=== PATIENT | female | born 1975 | race Caucasian/White ===

== ENCOUNTER 2016-06-23 18:33 | Inpatient (IN) ==
--- NOTE | 2016-06-23 18:48 | EKG Report ---
Test Performed on : 06/23/2016 6:39:42 PM Test Reason : CP Blood Pressure : / mmHG Vent. Rate : 069 BPM Atrial Rate : 069 BPM P-R Int : 140 ms QRS Dur : 108 ms QT Int : 408 ms P-R-T Axes : 017 062 044 degrees QTc Int : 437 ms Normal sinus rhythm. Normal ECG When compared with ECG of 02-JUN-2016 18:50, No significant change was found Unconfirmed Result
[2016-06-23 19:24] LABS: MANUAL DIFF NEEDED? NO
[2016-06-23 19:25] LABS: BASO% 0.1 % (0.0-0.8); EOS% 0.7 % (0.0-10.0); HEMOGLOBIN 12.3 g/dL (12.0-16.0); IMM GRAN# 0.06 X1000 (0.0-0.04); IMM GRAN% 0.4 % (0.0-0.5); LYMPH# 2.98 X1000 (1.2-3.4); LYMPH% 21.2 % (20.5-51.1); MCH 27.7 PG (27-31); MCHC 33.2 g/dL (33-37); MCV 83.3 FL (81-99); MONO# 0.78 X1000 (0.11-0.59); MONO% 5.6 % (1.7-9.3); MPV 9.7 FL (7.4-10.4); PLT 426 X1000 (130-400); RBC 4.44 XMIL (4.2-5.4)
[2016-06-23 19:46] LABS: INR 0.96 (0.86-1.15); PROTIME 13.1 Seconds (12.1-15.5)
[2016-06-23 19:47] LABS: PTT PL 36.5 Seconds (22.6-43.9)
--- NOTE | 2016-06-23 19:54 | ED EKG INTERP ---
EKG Interpretation - EKG Time of EKG reading by physician:: 18:39 EKG Read and Signed by:: Yassine Thapa EKG Interpretation (*Must complete 3 of following elements*): Normal Rate: 69 Rhythm: nsr [place]: normal QRS: normal Attestation - Scribe Verification/Attestation Scribe:: Alley Little Acting as Scribe for:: Yassine Thapa Scribe documention review:: This chart was documented by a scribe and accurately reflects the service the provider performed and the decisions made by the provider. Physician Attestation - Physician Attestation I, the provider, attest to the following statement:: Yassine Thapa Physician documentation Attestation:: This documentation recorded by the scribe accurately reflects the service I personally performed and the decisions made by me.
[2016-06-23 19:55] LABS: AGAP 12; ALBUMIN 4.5 g/dL (3.5-5.0); ALKALINE PHOSPHATASE 108 U/L (32-104); BUN 12 mg/dL (8-22); CALCIUM 9.2 mg/dL (8.8-10.2); CHLORIDE 100 mmol/L (98-107); CK PROFILE 129 U/L (24-173); COSMO 271; GOT 15 U/L (10-30); GPT 19 U/L (10-36); MAGNESIUM 2.5 mg/dL (1.5-2.7); POTASSIUM 3.5 mmol/L (3.5-5.1); SODIUM 136 mmol/L (136-145); TCO2 25 mmol/L (25-35); TOTAL PROTEIN 8.2 g/dL (6.3-8.3)
--- NOTE | 2016-06-23 20:11 | PROVIDER DOCUMENTATION ---
HPI-Chest Pain - General Chief Complaint: Chest Pain Stated Complaint: CHEST PAIN Time Seen by Provider: 06/23/16 18:51 Source: patient Allergies/Adverse Reactions: Patient Allergies Allergy/AdvReac Type Severity Reaction Status Date / Time No Known Allergies Allergy Verified 06/23/16 18:43 Home Medications: Home Medication List Medication Instructions Recorded Confirmed Last Taken Type Famotidine [Pepcid] 20 mg PO DAILY #20 tablet 05/28/16 06/23/16 06/23/16 Rx Lisinopril/Hydrochlorothiazide 1 each PO DAILY #30 tablet 05/28/16 06/23/16 Rx [Lisinopril-Hctz 10-12.5 mg Tab] - History of Present Illness-CP Nature of Presenting Problem: pt is a 40yof presenting to the ed c/o cp/sob. pt has no history of cardiac dz. pt denies any n/v/d or fever. she denies any other complaints at this time Location: reports: central Chest Pain Radiation: reports: no radiation Quality of Pain: reports: aching Severity in ED: mild Onset/Duration: 24 hours ago Timing: still present Context/Activities at Onset: reports: light activity Modifying Factors: improves with: nothing Associated Symptoms: reports: fatigue, shortness of breath. denies: back pain, diaphoresis, nausea, syncope, vomiting Nitro Today/Relief: no nitro taken today Aspirin Treatment Today: no aspirin today Prior Chest Pain/Cardiac Workup: reports: no prior chest pain, no prior cardiac workup Similar Symptoms Previously?: No Recently Seen Here or By Another Healthcare Provider: No Review of Systems - Adult - REVIEW OF SYSTEMS - ADULT Constitutional: reports: no symptoms reported Eyes: reports: no symptoms reported Ears, Nose, Mouth & Throat: reports: no symptoms reported Cardiovascular: reports: see HPI, chest pain. denies: irregular heart rate, poor circulation, syncope Respiratory: reports: see HPI, shortness of breath. denies: cough, dyspnea on exertion Gastrointestinal: reports: no symptoms reported Genitourinary: reports: no symptoms reported Musculoskeletal: reports: no symptoms reported Integumentary: reports: no symptoms reported Neurological: reports: no symptoms reported Psychiatric: reports: no symptoms reported Endocrine: reports: no symptoms reported Hematologic/Lymphatic: reports: no symptoms reported Allergic/Immunologic: reports: no symptoms reported All Other Systems: Reviewed and Negative Past History - Adult - PAST MEDICAL HISTORY-ADULT Review of Records: reports: Old Records Reviewed, Nursing Assessment Review, Medications Reviewed, Social history reviewed & non-contributory. Major Childhood Illnesses: reports: denies history Cardiovascular: reports: HTN Respiratory: reports: denies history Gastrointestinal: reports: GERD Obstetrical/Gynecological: reports: denies history Genitourinary: reports: denies history Musculoskeletal: reports: denies history Neurological: reports: denies history Psychiatric: reports: denies history Endocrine/Immune: reports: denies history Other Conditions: reports: denies history - IMMUNIZATION STATUS Childhood Immunizations: See Nurse Assessment Flu Vaccine: See Nurse Assessment - FAMILY HISTORY Family History: reviewed, not pertinent - SOCIAL HISTORY Smoking: denies, non-smoker Substance Use: none/never, denies Alcohol Use Frequency: never Living Situation: family Physical Exam-General - PHYSICAL EXAM-ADULT Initial Vital Signs Reviewed: Yes - CONSTITUTIONAL General Appearance: alert, moderate distress. negative: appears well, no apparent distress - EYES Eyes: PERRL/EOMI, pink conjunctivae, fundi clear, no AV nicking - HEAD, EARS, NOSE, MOUTH & THROAT HENMT: normocephalic/atraumatic, moist mucous membranes, TMs normal, pharynx normal, dental decay. negative: normal ENT inspection - NECK Neck: non-tender, full range of motion, supple, normal inspection - RESPIRATORY Respiratory: chest non-tender, lungs clear, normal breath sounds, no pleuratic chest pain, no respiratory distress, no accessory muscle use - CARDIOVASCULAR Cardiovascular: normal peripheral pulses, regular rate, rhythm, no edema, no gallop, no JVD, no murmur - GASTROINTESTINAL (ABDOMEN) Abdominal Exam: normal bowel sounds, non tender, soft, no organomegaly, no pulsatile mass - LYMPHATIC Lymphatic: no adenopathy - MUSCULOSKELETAL Back Exam: normal inspection, no CVA tenderness, no vertebral tenderness Extremity: normal range of motion, non-tender, normal gait, normal inspection, no pedal edema, no calf tenderness, normal capillary refill, pelvis stable - SKIN Integumentary: normal color, normal turgor, warm/dry - NEUROLOGIC Neurologic: certified medical coder II-XII nml as tested, grossly normal, no motor/sensory deficits - PSYCHIATRIC Psych/Mental Status: normal mood/affect, normal thought content, normal thought process, oriented x 3 Departure - Departure Time of Disposition Order: 18:23 DIAGNOSIS: Intrauterine Disposition: ADMITTED INPATIENT 09 Certified Medical Emergency: Emergent Condition: Stable Attestation - Scribe Verification/Attestation Scribe:: Alley Little Acting as Scribe for:: Yassine Thapa Scribe documention review:: This chart was documented by a scribe and accurately reflects the service the provider performed and the decisions made by the provider. Physician Attestation - Physician Attestation I, the provider, attest to the following statement:: Yassine Thapa Physician documentation Attestation:: This documentation recorded by the scribe accurately reflects the service I personally performed and the decisions made by me.
[2016-06-23] MEDS ORDERED: G.I. COCKTAIL PO ONE (20:27)
[2016-06-23] MEDS ORDERED: TORADOL IV ONE (20:27)
--- NOTE | 2016-06-23 20:31 | EKG Report ---
Test Performed on : 06/23/2016 8:17:10 PM Test Reason : CHEST PAIN Blood Pressure : / mmHG Vent. Rate : 068 BPM Atrial Rate : 068 BPM P-R Int : 152 ms QRS Dur : 102 ms QT Int : 408 ms P-R-T Axes : 036 076 052 degrees QTc Int : 433 ms Normal sinus rhythm. Normal ECG When compared with ECG of 23-JUN-2016 18:39, (Unconfirmed) No significant change was found Unconfirmed Result
--- NOTE | 2016-06-23 20:31 | ED EKG INTERP ---
EKG Interpretation - EKG Time of EKG reading by physician:: 20:18 EKG Read and Signed by:: Yassine Thapa EKG Interpretation (*Must complete 3 of following elements*): Normal Rate: 68 Rhythm: NSR [place]: normal QRS: normal Attestation - Scribe Verification/Attestation Scribe:: Alley Little Acting as Scribe for:: Yassine Thapa Scribe documention review:: This chart was documented by a scribe and accurately reflects the service the provider performed and the decisions made by the provider. Physician Attestation - Physician Attestation I, the provider, attest to the following statement:: Yassine Thapa Physician documentation Attestation:: This documentation recorded by the scribe accurately reflects the service I personally performed and the decisions made by me.
[2016-06-23] MEDS ORDERED: MORPHINE IV PRN (21:28)
[2016-06-23] MEDS ORDERED: ZOFRAN IV PRN (21:28)
[2016-06-24] MEDS ORDERED: MORPHINE IV PRN (07:41)
--- NOTE | 2016-06-24 08:57 | Diag Imaging Result Document ---
PROCEDURE NAME: CHEST-2 VIEWS - 06/23/2016 CHEST X-RAY, 2 VIEWS: COMPARISON: 06/02/2016. FINDINGS: Stable small pulmonary nodule in the left lung base. No focal infiltrates, pneumothorax, or pleural effusion. Heart size remains normal. IMPRESSION: Stable small left basilar pulmonary nodule. No change from prior.
[2016-06-24] MEDS ORDERED: FLUZONE QUAD 2016-2017 SYRINGE IM ONE (09:00)
[2016-06-24] MEDS ORDERED: NON-FORMULARY MED (Lisinopril/Hydrochlorothiazide [Lisinopril-Hctz 10-12.5 Mg Tab] 1 EACH) PO SCH (09:00)
[2016-06-24 09:01] LABS: HEMATOCRIT 34.4 % (37.0-47.0); HEMOGLOBIN 11.5 g/dL (12.0-16.0); MCH 28.2 PG (27-31); MCHC 33.4 g/dL (33-37); MCV 84.3 FL (81-99); MPV 9.2 FL (7.4-10.4); RBC 4.08 XMIL (4.2-5.4)
[2016-06-24] MEDS: PRINIVIL PO SCH (09:27)
[2016-06-24] MEDS: PROTONIX IV SCH ×2 (09:27→20:08)
[2016-06-24] MEDS: HYDROCHLOROTHIAZIDE PO SCH (09:27)
[2016-06-24] MEDS: SODIUM CHLORIDE 0.9% INJ SCH ×2 (09:27→20:08)
[2016-06-24 09:35] LABS: AGAP 12; ALBUMIN 3.8 g/dL (3.5-5.0); ALKALINE PHOSPHATASE 98 U/L (32-104); BUN 15 mg/dL (8-22); CALCIUM 8.9 mg/dL (8.8-10.2); CHLORIDE 102 mmol/L (98-107); COSMO 273; GOT 16 U/L (10-30); GPT 19 U/L (10-36); MAGNESIUM 2.5 mg/dL (1.5-2.7); POTASSIUM 3.7 mmol/L (3.5-5.1); SODIUM 136 mmol/L (136-145); TCO2 22 mmol/L (25-35); TOTAL PROTEIN 7.1 g/dL (6.3-8.3)
--- NOTE | 2016-06-24 10:01 | EKG Report ---
Test Performed on : 06/24/2016 09:25:02 AM Test Reason : cp Blood Pressure : / mmHG Vent. Rate : 061 BPM Atrial Rate : 061 BPM P-R Int : 124 ms QRS Dur : 108 ms QT Int : 440 ms P-R-T Axes : 042 032 023 degrees QTc Int : 442 ms Normal sinus rhythm. with sinus arrhythmia. Junctional ST depression, probably normal Borderline ECG When compared with ECG of 23-JUN-2016 20:17, ST now depressed in Anterior leads Unconfirmed Result
[2016-06-24] MEDS: TORADOL IV PRN (13:05)
--- NOTE | 2016-06-24 17:29 | HISTORY AND PHYSICAL ---
PRIMARY CARE PHYSICIAN: None. CHIEF COMPLAINT: "I have a crushing pain in my chest since 3 o'clock yesterday afternoon, and it has been constant." HISTORY OF PRESENTING ILLNESS: This is a 40-year-old female who presented to [facility] with complaints of a crushing pain in her chest that began around 3 o'clock yesterday afternoon. She stated that it stayed constant. It did not improve with anything. Workup in the ER showed cardiac enzymes x2 sets were negative. EKG on arrival showed normal sinus rhythm at 69, so she was admitted for further evaluation and treatment. PAST MEDICAL HISTORY: Hypertension and acid reflux PAST SURGICAL HISTORY: section x3. FAMILY HISTORY: Maternal grandfather with diabetes. SOCIAL HISTORY: She currently lives with her mother. She denies any tobacco, alcohol, or illicit drug use. ALLERGIES: She has no known drug allergies. HOME MEDICATIONS: She takes lisinopril/hydrochlorothiazide 10/12.5 one p.o. daily and Pepcid 20 mg p.o. daily. DIAGNOSTIC DATA: Laboratory data showed a white blood cell count of 14.05, hemoglobin of 12.3, hematocrit 37, platelets 426,000. PT and INR of 13.1 and 0.96. Sodium of 136, potassium 3.5, chloride 100, CO2 of 25, BUN of 12, creatinine 0.7, glucose of 90, magnesium 2.5. Her cardiac enzymes x2 sets have been negative. Her proBNP was 179. EKG on arrival showed normal sinus rhythm at 69. Chest x-ray showed a stable small left basilar pulmonary nodule with no change from prior. REVIEW OF SYSTEMS: She denied any fever, chills, blurred vision, dizziness. She was positive for chest pain. Denied any palpitations, shortness of breath, cough, abdominal pain, nausea, vomiting, diarrhea, or burning or hurting with urination. PHYSICAL EXAMINATION: VITAL SIGNS: On arrival, she had a temperature of 97.1 degrees, a pulse of 67, respirations 18, blood pressure 147/93, saturating 100% on room air. GENERAL: This is a 40-year-old female who is lying in the bed and answers questions appropriately. HEENT: Normocephalic and atraumatic. Pupils are equal, round, and reactive to light. Extraocular movements are intact. Oropharynx and nares are clear. NECK: Supple. LUNGS: Clear to auscultation bilaterally with equal lung expansion and chest wall movement. HEART: With regular rate and rhythm. No murmurs, rubs, or gallops. ABDOMEN: Soft, nontender, nondistended. Bowel sounds are present x4 quadrants. EXTREMITIES: No clubbing, cyanosis, or edema. NEUROLOGICAL: The cranial nerves 2 through 12 are grossly intact. ASSESSMENT: 1. Chest pain. 2. Hypertension. 3. Acid reflux. PLAN: She was admitted to the Medical Unit at [facility], placed on telemetry, healthy heart diet. We will obtain an echocardiogram. Continue her home medications as previously identified. Morphine 2 mg IV every 2 hours p.r.n. and Zofran 4 mg IV every 4 hours p.r.n. We will recheck a CBC and BMP in the a.m. Dictated by BROWN Hopkins for Yovany Rojas MD
[2016-06-25] MEDS: HYDROCHLOROTHIAZIDE PO SCH (08:18)
[2016-06-25] MEDS: SODIUM CHLORIDE 0.9% INJ SCH (08:18)
[2016-06-25] MEDS: PRINIVIL PO SCH (08:18)
[2016-06-25] MEDS: PROTONIX IV SCH (08:18)
[2016-06-25] MEDS: TORADOL IV PRN (10:51)
--- NOTE | 2016-06-25 14:26 | PROGRESS NOTE ---
DATE: 06/25/2016 SUBJECTIVE: Patient still complains of chest pain although it is not the same chest pain she had yesterday. Currently the chest pain is on the right side of her chest, tender to the touch and hurts when she moves her right arm. She states that she gets dizzy, lightheaded and nauseated when the chest pain increases. PHYSICAL: Temp 98 degrees, pulse 76, respiratory 20, BP 126/70 to 142/77. Saturation 98-100% on room air.General: Patient is awake, alert. She is in no distress. She is watching television. She does not appear to be hurting anywhere. HEENT: Normocephalic, atraumatic, GABE. Neck: Supple. CV: Regular rate. Chest: Relatively clear. Abdomen: Soft, nondistended. Extremities: Moves all extremities. Neurologic: No changes. LABORATORIES: CBC and CMP essentially normal. First 2 sets cardiac enzymes are completely normal. ASSESSMENT: 1. Chest pain. Certainly does not appear cardiac. It appears much more costochondral in nature. 2. Dizziness. Uncertain cause of this. 3. Hypertension stable. 4. Chronic reflux. PLAN: Will stop morphine which she has not actually asked for. Will change to p.o. Prilosec. Continue Toradol. Certainly unusual cause of her pain that would be causing her to be lightheaded. She is a very difficult historian. We will continue to follow. Further orders as needed.
[2016-06-26] MEDS ORDERED: PRILOSEC PO SCH (07:00)
[2016-06-26] MEDS: HYDROCHLOROTHIAZIDE PO SCH (08:39)
[2016-06-26] MEDS: PRINIVIL PO SCH (08:39)
[2016-06-26 11:23] VITALS: BP 125/62
--- NOTE | 2016-06-26 16:30 | ECHO REPORT ---
ORDER DATE: 06/24/2016 ECHOCARDIOGRAPHIC MEASUREMENTS: 1. Interventricular septum 1.2, left ventricular posterior wall 1.0, diastolic diameter 4.6, left atrium 4, aorta 3.1, aortic valve leaflets were trileaflet. 2. Pulmonic valve was normal. 3. Normal left ventricular cavity size. Estimated ejection fraction of 60%. Mitral valve was normal. Tricuspid valve was normal. 4. Doppler studies revealed peak velocity across the aortic valve less than 2 m/sec. There is no aortic stenosis or regurgitation. There is trace to mild tricuspid regurgitation. Peak velocity across the tricuspid valve was 2.6 m/sec. Pulmonary artery systolic pressure of 35- 38 mmHg. 5. There was trace mitral regurgitation. 6. There is no pericardial effusion or obvious intracardiac mass or thrombus seen.
--- NOTE | 2016-06-27 06:32 | DISCHARGE SUMMARY ---
ADMISSION DATE: 06/23/2016 DISCHARGE DATE: 06/26/2016 DISCHARGE DIAGNOSES: 1. Chest pain. Clearly this is noncardiac and is pleuritic in nature, and she is tender at the head of the 3rd and 4th rib. Hurts to move her right arm. 2. Dizziness, likely vertigo-related. While she is laying in bed her dizziness is still present. 3. New onset right knee pain. Stable. 4. Hypertension. 5. Reflux. CONSULTATIONS: None. PROCEDURES: None. BRIEF HOSPITAL COURSE: Patient is a 40-year-old female who presented to the emergency department with crushing chest pain that awakened her around 3 o'clock in the afternoon and had been constant and persistent in nature. She was admitted to the hospital. Ruled out for an MO. She would have been discharged home 1 day earlier but she noted that each time she got up she was too dizzy to stand. Thankfully this continued to improve. On discharge, she was having dizziness but it was much improved. Unfortunately each day she was in the hospital, Ms. Gill noted different symptoms and worsening symptoms. After a day or she became nauseated and then notes that this has been going on for several months. She also started having headaches, but notes she has had headaches off and on forever. She has been complaining of her right knee hurting, but after further questioning this has been present for 2-3 weeks and unchanged. Patient thankfully otherwise had an uneventful hospital course. DISPOSITION: 35 minutes was spent in discharge planning and instructions. Discussed with her that she needs to follow up with her primary care physician regarding her right knee as this would be an outpatient workup and she may need x-rays, MRIs etc. Currently it is stable and she is able to ambulate with minimal difficulty. She will be continued on her home medications of Pepcid and lisinopril hydrochlorothiazide. No other changes were made. She can take Aleve if she needs to. DISCHARGE TIME: 35 minutes was spent in discharge planning and instructions.
== END 2016-06-26 13:13 | disposition home or self-care (01) | DRG 313 ==
LOC: P.ED 18:33 → OBSVTOIN 21:43 → P.MEDSURG 21:43
PROVIDERS: ATTEND Family Medicine
DX: R07.89 Other chest pain (principal); I10 Essential (primary) hypertension; K21.9 Gastro-esophageal reflux disease without esophagitis; R42 Dizziness and giddiness; M25.561 Pain in right knee; Z79.899 Other long term (current) drug therapy; Z83.3 Family history of diabetes mellitus; Z23 Encounter for immunization
CPT/HCPCS: 71020; 80053; 82550; 83735; 83880; 84443; 84484; 85025; 85027; 85610; 85730; 93005; 93306; 94760; 94761; 96374; C9113; J1885; J2270; Q2038; S0164

== ENCOUNTER 2019-03-13 18:21 | Observation (INO) ==
[2019-03-13] MEDS ORDERED: ASPIRIN PO ONE (18:58)
[2019-03-13] MEDS ORDERED: ASPIRIN PR ONE (18:58)
--- NOTE | 2019-03-13 19:58 | Diag Imaging Result Doc PS360 ---
EXAM: CHEST-2 VIEWS INDICATION: CP TECHNIQUE: 2 views COMPARISON: 11/27/2017 FINDINGS: There is a stable calcified granuloma at the lateral left lung base. The lungs are grossly clear. There is no discrete pleural fluid collection or pneumothorax. The cardiomediastinal silhouette and central vasculature are grossly unremarkable. IMPRESSION: No evidence of acute pathology by plain radiograph. Electronically signed by Demian Sheikh 03/13/2019 7:56 PM
[2019-03-13 20:01] LABS: INR 0.94; PROTIME 12.6 Seconds (11.0-16.0)
[2019-03-13 20:02] LABS: PTT 30.5 Seconds (22.3-41.8)
[2019-03-13 20:07] LABS: BASO# 0.02 X1000 (0.0-0.2); BASO% 0.2 % (0.0-0.8); EOS# 0.19 X1000 (0.0-0.7); EOS% 1.7 % (0.0-10.0); HEMOGLOBIN 11.4 g/dL (12.0-16.0); IMM GRAN# 0.11 X1000 (0.0-0.04); LYMPH% 27.1 % (20.5-51.1); MCH 29.6 PG (27-31); MCHC 32.6 g/dL (33-37); MCV 90.9 FL (81-99); MONO# 0.68 X1000 (0.11-0.59); MONO% 6.1 % (1.7-9.3); MPV 10.7 FL (7.4-10.4); NEUT# 7.08 X1000 (1.4-6.5); NEUT% 63.9 % (42.2-75.2); PLT 329 X1000 (130-400); RBC 3.85 XMIL (4.2-5.4); RDW 13.3 % (11.5-14.5); WBC 11.08 X1000 (4.8-10.8)
[2019-03-13 20:14] LABS: AGAP 14; ALB/GLOB RATIO 1.6; ALBUMIN 4.3 g/dL (3.5-5.0); ALKALINE PHOSPHATASE 114 U/L (32-104); BUN 16 mg/dL (8-22); CALCIUM 9.4 mg/dL (8.8-10.2); CHLORIDE 101 mmol/L (98-107); CK PROFILE 1043 U/L (24-173); COSMO 283; CREATININE 0.9 mg/dL (0.5-0.9); ESTIMATED GFR > 60; GLUCOSE 109 mg/dL (70-104); GOT 39 U/L (10-30); GPT 42 U/L (10-36); POTASSIUM 3.7 mmol/L (3.5-5.1); SODIUM 141 mmol/L (136-145); TCO2 26 mmol/L (25-35); TOTAL BILIRUBIN < 0.15 mg/dL (0.20-1.00)
--- NOTE | 2019-03-13 20:23 | PROVIDER DOCUMENTATION ---
HPI-Chest Pain - General Chief Complaint: Chest Pain Stated Complaint: CHEST PAIN Time Seen by Provider: 03/13/19 20:16 Source: patient Allergies/Adverse Reactions: Patient Allergies Allergy/AdvReac Type Severity Reaction Status Date / Time No Known Allergies Allergy Verified 03/13/19 20:21 Home Medications: Home Medication List Medication Instructions Recorded Confirmed Last Taken Type Clindamycin [Cleocin] 300 mg PO Q6HR 09/04/18 09/10/18 09/01/18 History Furosemide [Lasix] 20 mg PO PRN PRN 09/04/18 09/04/18 09/01/18 History Ibuprofen 800 mg PO TID 09/04/18 09/04/18 09/01/18 History Lisinopril/Hydrochlorothiazide 1 ea PO DAILY 09/04/18 09/04/18 09/01/18 History [Lisinopril-Hctz 20-12.5 mg Tab] Naproxen 500 mg PO BID 09/04/18 09/04/18 09/01/18 History Propranolol HCl 60 mg PO HS 09/04/18 09/04/18 09/01/18 History Hydrocodone/APAP 10 mg/325 mg 1 ea PO Q6H PRN PRN #12 tab 09/10/18 Unknown Rx [Irving-10] Promethazine [Phenergan] 25 mg PO Q6H PRN PRN #5 tab 09/10/18 Unknown Rx Cyclobenzaprine [Flexeril] 10 mg PO TID #20 tab 11/26/18 Unknown Rx - History of Present Illness-CP Nature of Presenting Problem: 43yof present to ER with c/o chest pain intermittent x 1 month. States the pain got much worse at 1500 today. Reports some SOB. States pain is worse with inspiration and movement. Denies fever. Location: reports: central Chest Pain Radiation: reports: no radiation Onset/Duration: this afternoon, other (1 month) Timing: still present, intermittent, getting worse Associated Symptoms: reports: shortness of breath. denies: diaphoresis, fever/chills, vomiting Review of Systems - Adult - REVIEW OF SYSTEMS - ADULT Constitutional: reports: no symptoms reported. denies: chills, fever Eyes: reports: no symptoms reported Ears, Nose, Mouth & Throat: reports: no symptoms reported Cardiovascular: reports: see HPI, chest pain Respiratory: reports: see HPI, shortness of breath Gastrointestinal: reports: no symptoms reported. denies: abdominal pain, nausea, vomiting Genitourinary: reports: no symptoms reported Musculoskeletal: reports: no symptoms reported Integumentary: reports: no symptoms reported Neurological: reports: no symptoms reported Psychiatric: reports: no symptoms reported Endocrine: reports: no symptoms reported Hematologic/Lymphatic: reports: no symptoms reported Allergic/Immunologic: reports: no symptoms reported All Other Systems: Reviewed and Negative Past History - Adult - PAST MEDICAL HISTORY-ADULT Review of Records: reports: Old Records Reviewed, Nursing Assessment Review, Medications Reviewed, Social history reviewed & non-contributory. Major Childhood Illnesses: reports: denies history Cardiovascular: reports: HTN Respiratory: reports: denies history Gastrointestinal: reports: GERD Obstetrical/Gynecological: reports: denies history Genitourinary: reports: denies history Musculoskeletal: reports: denies history Neurological: reports: denies history Psychiatric: reports: denies history, depression Endocrine/Immune: reports: denies history Other Conditions: reports: denies history - PRIOR SURGERIES/PROCEDURES Surgical/Procedure History: reports: hysterectomy, BTL, (x3) - IMMUNIZATION STATUS Childhood Immunizations: See Nurse Assessment Flu Vaccine: See Nurse Assessment - FAMILY HISTORY Family History: reviewed, not pertinent Physical Exam-General - PHYSICAL EXAM-ADULT Initial Vital Signs Reviewed: Yes - CONSTITUTIONAL General Appearance: alert, mild distress - HEAD, EARS, NOSE, MOUTH & THROAT HENMT: moist mucous membranes, normal ENT inspection. negative: angioedema - NECK Neck: full range of motion, supple, normal inspection - RESPIRATORY Respiratory: lungs clear, normal breath sounds, no respiratory distress, no acc essory muscle use, pain on inspiration, other (tenderness to palpation to chest) - CARDIOVASCULAR Cardiovascular: regular rate, rhythm - LYMPHATIC Lymphatic: no adenopathy - MUSCULOSKELETAL Back Exam: normal inspection Extremity: normal range of motion, normal inspection - SKIN Integumentary: normal color, warm/dry. negative: diaphoresis - NEUROLOGIC Neurologic: grossly normal, no motor/sensory deficits - PSYCHIATRIC Psych/Mental Status: normal mood/affect, oriented x 3 - HEART Score HEART Score: History: Slightly Suspicious HEART Score: ECG: Normal HEART Score: Age: < or = 45 Years HEART Score: Risk Factors for Atherosclerotic Disease: 1 or 2 Risk Factors HEART Score: Troponin: < or = Normal Limit Total HEART Score:: 1 Progress - PLAN OF CARE/RESULTS Progress/Plan/Lab Results: Vital Signs - 8 hr 03/13/19 18:55 Temperature 98.2 F Pulse Rate 71 Respiratory Rate 18 Blood Pressure 138/85 O2 Sat by Pulse Oximetry 99 Laboratory Results - last 24 hr 03/13/19 03/13/19 03/13/19 19:03 19:03 19:03 WBC 11.08 H RBC 3.85 L Hgb 11.4 L Hct 35.0 L MCV 90.9 MCH 29.6 MCHC 32.6 L RDW Std Deviation 13.3 Plt Count 329 MPV 10.7 H Immature Gran % (Auto) 1.0 H Neut % (Auto) 63.9 Lymph % (Auto) 27.1 [place] % (Auto) 6.1 Eos % (Auto) 1.7 Baso % (Auto) 0.2 Immature Gran # (Auto) 0.11 H Neut # (Auto) 7.08 H Lymph # (Auto) 3.00 [place] # (Auto) 0.68 H Eos # (Auto) 0.19 Baso # (Auto) 0.02 PT INR PTT (Actin FS) D-Dimer, Quantitative Sodium 141 Potassium 3.7 Chloride 101 Carbon Dioxide 26 Anion Gap 14 BUN 16 Creatinine 0.9 Estimated GFR/1.73 m2 > 60 BUN/Creatinine Ratio 18 Glucose 109 H Calculated Osmolality 283 Calcium 9.4 Total Bilirubin < 0.15 L AST 39 H ALT 42 H Alkaline Phosphatase 114 H Creatine Kinase 1043 H Creatine Kinase Index 0.2 CK-MB (CK-2) 2.08 Troponin T Poa-N-Tyztignbkwg Pept 185 H Total Protein 7.0 Albumin 4.3 Globulin 2.7 Albumin/Globulin Ratio 1.6 03/13/19 03/13/19 03/13/19 19:03 19:03 19:03 WBC RBC Hgb Hct MCV MCH MCHC RDW Std Deviation Plt Count MPV Immature Gran % (Auto) Neut % (Auto) Lymph % (Auto) [place] % (Auto) Eos % (Auto) Baso % (Auto) Immature Gran # (Auto) Neut # (Auto) Lymph # (Auto) [place] # (Auto) Eos # (Auto) Baso # (Auto) PT 12.6 INR 0.94 PTT (Actin FS) 30.5 D-Dimer, Quantitative 0.61 H Sodium Potassium Chloride Carbon Dioxide Anion Gap BUN Creatinine Estimated GFR/1.73 m2 BUN/Creatinine Ratio Glucose Calculated Osmolality Calcium Total Bilirubin AST ALT Alkaline Phosphatase Creatine Kinase Creatine Kinase Index CK-MB (CK-2) Troponin T < 0.010 Qze-K-Ylmzcnpvtpc Pept Total Protein Albumin Globulin Albumin/Globulin Ratio Orders Category Date Time Status Cardiac Monitoring DIRECTED Care 03/13/19 18:59 Active Oxygen Therapy- ED Nursing DIRECTED Care 03/13/19 18:59 Active Saline Loc NOW Care 03/13/19 18:59 Active CHEST-2 VIEWS [RAD] Stat Exams 03/13/19 18:59 Completed CBC WITH ELECTRONIC DIFF [HEME] Stat Lab 03/13/19 19:03 Completed CK PROFILE [SP CHEM] Stat Lab 03/13/19 19:03 Completed COMPREHENSIVE METABOLIC PANEL [CHEM] Stat Lab 03/13/19 19:03 Completed D-DIMER [COAG] Stat Lab 03/13/19 19:03 Completed PRO B-NATRIURETIC PEPTIDE Stat Lab 03/13/19 19:03 Completed PROTIME WITH INR [COAG] Stat Lab 03/13/19 19:03 Completed PTT [COAG] Stat Lab 03/13/19 19:03 Completed TROPONIN T Stat Lab 03/13/19 19:03 Completed Aspirin Med 03/13/19 18:58 Discontinued 300 mg SD NOW ONE Aspirin Med 03/13/19 18:58 Discontinued 325 mg PO NOW ONE CP/SOB/Palp >45 yrs of Age Stat Oth 03/13/19 18:58 Ordered EKG [EKG] Stat Ther 03/13/19 18:59 Ordered Pt had stress last week, schedule to have cath in the am, now with worsening cp, will admit and pt to have cath in the am Result Diagrams: 03/13/19 19:03 03/13/19 19:03 - XRAY 1 XRAY Study: Chest Impression: See EMR Report (EXAM: CHEST-2 VIEWS INDICATION: CP TECHNIQUE: 2 views COMPARISON: 11/27/2017 FINDINGS: There is a stable calcified granuloma at the lateral left lung base. The lungs are grossly clear. There is no discrete pleural fluid collection or pneumothorax. The cardiomediastinal paco [place]ou[place] and central vasculature are grossly unremarkable. IMPRESSION: No evidence of acute pathology by plain radiograph. Electronically signed by Demian Sheikh 03/13/2019 7:56 PM) - CHANGE OF SHIFT REPORT (ED Provider) 1 Report Given and Care Transferred to:: Dr King Time of Transfer: 20:42 Items Pending: Labs Departure - Departure Date of Disposition Decision: 03/13/19 Time of Disposition Decision: 23:22 DIAGNOSIS: Chest pain Qualifiers: Chest pain type: other chest pain Qualified Code(s): R07.89 - Other chest pain; R07.8 - Other chest pain Disposition: ADMITTED INPATIENT 09 Certified Medical Emergency: Emergent Condition: Stable Referrals and Follow-Ups: Sharad Drew [Primary Care Provider] - - Critical Care Note This patient required my direct & personal management of CC.: No Attestation - Physician/ GRETA Attestation Patient care was provided by Advanced Practice Provider:: Yes Advanced Practice Provider:: Mirela Davis Advanced Practice Provider documentation review:: The Mid-level provider documentation, treatment plan and medical decision making was reviewed by the physician who agrees with all treatment and medical decision making by the MLP. The physician spent face to face time with patient:: Yes Advanced Practice Provider documentation review:: Supervising physician onsite and consulted in the evaluation and care of this patient. The physician did have a face to face encounter with the patient.
[2019-03-13 20:32] LABS: CK INDEX 0.2 (0.0-2.5); CK-MB 2.08 ng/mL (0.0-5.0)
[2019-03-13] MEDS ORDERED: MORPHINE IV ONE (22:59)
--- NOTE | 2019-03-13 23:21 | ED EKG INTERP ---
This chart was entered by Estela Hadadd Scribe, acting as scribe for Westley King MD. EKG Interpretation - EKG Time of EKG reading by physician:: 19:05 EKG Read and Signed by:: Westley King EKG Interpretation (*Must complete 3 of following elements*): Abnormal (can not rule out anterior infarct-age undetermined) Rate: 68 Rhythm: nsr QRS: RBB (incomplete RBBB), other (low voltage QRS) Attestation - Physician/ GRETA Attestation Patient care was provided by Advanced Practice Provider:: Yes Advanced Practice Provider:: Mirela Davis Advanced Practice Provider documentation review:: The Mid-level provider documentation, treatment plan and medical decision making was reviewed by the physician who agrees with all treatment and medical decision making by the P. The physician spent face to face time with patient:: Yes Advanced Practice Provider documentation review:: Supervising physician onsite and consulted in the evaluation and care of this patient. The physician did have a face to face encounter with the patient. This chart was documented by the indicated scribe, (Estela Haddad Scribe) and accurately reflects the services I performed and decisions made by me, Westley King MD, as attested by the provider's signature.
[2019-03-14] MEDS ORDERED: NITROGLYCERIN SL PRN (01:44)
[2019-03-14] MEDS ORDERED: TYLENOL PO PRN (01:44)
[2019-03-14] MEDS ORDERED: ZOFRAN IV PRN (01:44)
[2019-03-14] MEDS: LOVENOX SUBQ SCH (02:26)
[2019-03-14 03:12] LABS: AGAP 16; BUN 18 mg/dL (8-22); CALCIUM 9.3 mg/dL (8.8-10.2); CHLORIDE 104 mmol/L (98-107); COSMO 287; CREATININE 0.7 mg/dL (0.5-0.9); ESTIMATED GFR > 60; GLUCOSE 105 mg/dL (70-104); POTASSIUM 3.8 mmol/L (3.5-5.1); SODIUM 143 mmol/L (136-145); TCO2 23 mmol/L (25-35)
[2019-03-14 03:13] LABS: CK PROFILE 715 U/L (24-173)
--- NOTE | 2019-03-14 03:19 | HISTORY AND PHYSICAL ---
PRIMARY CARE PHYSICIAN: Dr. Shaggy Drew. CHIEF COMPLAINT: Chest pain. HISTORY OF PRESENTING ILLNESS: A 43-year-old obese female with a history of hypertension, GERD, who had presented to the emergency department with 1-day history of having worsening chest pain. She states that it felt like there was pressure in her chest and she was short of breath. The patient apparently had a GXT done several weeks ago and apparently it was all normal. She was scheduled to have a heart catheterization tomorrow. The patient was evaluated in the emergency department. Due to her presenting symptoms, it was thought that she would need admission for further management. At the time of my examination, patient denied any headache, fever, chills, nausea, vomiting, diarrhea, hemoptysis, melena, weight changes, but complained of chest pain. PAST MEDICAL HISTORY: Includes hypertension, GERD. PAST SURGICAL HISTORY: Melanoma removed from her back. ALLERGIES: No known drug allergies. CURRENT MEDICATIONS: Lasix 20 mg p.o. daily, lisinopril 20 mg p.o. daily, metformin 500 mg p.o. daily and propranolol 40 mg p.o. daily. SOCIAL HISTORY: No history of smoking, alcohol or illicit drug use. FAMILY HISTORY: No history of coronary artery disease. REVIEW OF SYSTEMS: Fourteen point review of system as listed in HPI. Other systems negative. PHYSICAL EXAMINATION: GENERAL: Cooperative, friendly female. She is resting more comfortably now. VITAL SIGNS: Temperature 98.2 degrees, pulse 71, respiration 18, blood pressure 138/85. She is saturating 99%. HEENT: Atraumatic, normocephalic. Extraocular movements intact. PERRLA. NECK: Supple. CHEST: Clear to auscultation. CARDIOVASCULAR: Regular rate and rhythm. ABDOMEN: Soft, obese, positive bowel sounds. EXTREMITIES: No edema. NEUROLOGIC: She is awake, alert, oriented x3. GENITOURINARY: No bladder distention. SKIN: Warm. LABORATORIES AND STUDIES: WBCs 11.08, hemoglobin 11.4, hematocrit 35.0, platelets 329,000. Sodium 141, potassium 3.7, chloride 101, CO2 is 26, BUN is 16, creatinine 0.9, glucose 109. Troponin 0.010. ASSESSMENT: A 43-year-old obese female with a history of hypertension, gastroesophageal reflux disease, who had presented to emergency department with 1-day history of having chest pain. She was evaluated in the ED and due to her presenting symptoms she will need admission for further management. 1. Chest pain. 2. Hypertension. 3. Gastroesophageal reflux disease. PLAN: 1. We will admit patient to medical floor with telemetry. 2. Continue with cardiac workup. Check EKG, serial cardiac enzymes. Have patient continue on aspirin. We will use sublingual nitroglycerin p.r.n. chest pain. 3. We will consult Cardiology. 4. We will monitor her blood pressure closely. 5. Restart her PPI. 6. Put patient on DVT prophylaxis with Lovenox. 7. We will continue to follow, and reassess and make further recommendation based on patient's clinical course. cc: Rick Wagoner MD
[2019-03-14 03:37] LABS: CK INDEX 0.2 (0.0-2.5); CK-MB 1.56 ng/mL (0.0-5.0)
[2019-03-14] MEDS ORDERED: MORPHINE IV PRN (03:47)
[2019-03-14] MEDS ORDERED: PRILOSEC PO SCH (07:00)
--- NOTE | 2019-03-14 07:23 | EKG Report ---
Test Performed on : 03/13/2019 6:27:35 PM Test Reason : CP Blood Pressure : / mmHG Vent. Rate : 068 BPM Atrial Rate : 068 BPM P-R Int : 184 ms QRS Dur : 102 ms QT Int : 402 ms P-R-T Axes : 086 050 022 degrees QTc Int : 427 ms Normal sinus rhythm. Low voltage QRS Incomplete right bundle branch block Cannot rule out Anterior infarct , age undetermined Abnormal ECG When compared with ECG of 04-SEP-2018 08:04, No significant change was found Unconfirmed Result
[2019-03-14] MEDS ORDERED: POTASSIUM CHLORIDE 10 MEQ in LR 1,000 ML IV SCH ×2 (07:30→18:00)
[2019-03-14] MEDS ORDERED: HEPARIN 1000 UNITS/NS 2,000 UNIT/1,000 ML IV.SOLN ONE (09:09)
[2019-03-14] MEDS ORDERED: NITROGLYCERIN ONE (09:09)
[2019-03-14] MEDS: ASPIRIN PO SCH (09:28)
[2019-03-14] MEDS: PRINIVIL PO SCH (09:37)
[2019-03-14] MEDS: INDERAL PO SCH (09:37)
[2019-03-14] MEDS ORDERED: DEMEROL ONE ×2 (10:08→11:12)
[2019-03-14] MEDS ORDERED: VERSED ONE (10:08)
[2019-03-14] MEDS ORDERED: NS 250 ML ONE (10:08)
[2019-03-14] MEDS ORDERED: ANESTHESIA PB SET 88 IN 5742 ONE (10:08)
[2019-03-14 11:10] LABS: CK INDEX 0.3 (0.0-2.5); CK-MB 1.41 ng/mL (0.0-5.0)
--- NOTE | 2019-03-14 12:13 | EKG Report ---
Test Performed on : 03/14/2019 11:57:26 AM Test Reason : post heart cath Blood Pressure : / mmHG Vent. Rate : 054 BPM Atrial Rate : 054 BPM P-R Int : 190 ms QRS Dur : 104 ms QT Int : 448 ms P-R-T Axes : 028 033 027 degrees QTc Int : 424 ms Sinus bradycardia. with sinus arrhythmia. Otherwise normal ECG When compared with ECG of 13-MAR-2019 18:27, (Unconfirmed) No significant change was found Confirmed by Alena DANIEL, Maximino ([id number]) on 03/15/2019 11:38:28 AM
--- NOTE | 2019-03-14 13:08 | CARDIAC CATH REPORT ---
DATE: 03/14/2019 PROCEDURES: 1. Left heart catheterization. 2. Selective bilateral coronary arteriography. 3. Left ventriculography. HISTORY: A 43-year-old female with recurrent chest pain. Admitted through the emergency room last night. The patient said that the pain happened at rest, it was intense. We had seen her at the office recently for evaluation of chest pain and a nuclear stress test showed partial reversible apical anterior defect. We have recommended a heart catheterization. We reassessed the patient and we felt that cardiac catheterization was probably the best thing to do to confirm whether or not the presence of any coronary heart disease. The benefits, risks and complications were discussed. She understood and requested to proceed. DESCRIPTION: The patient came in to the cardiac photographic laboratory technician in a fasting state. The right antecubital fossa was prepped and draped in a sterile fashion, anesthetized with lidocaine 1%. A 5 Nigerien sheath was inserted into the right brachial artery by following the modified Seldinger technique. We advanced a 5 Nigerien Sones type 1 catheter. We opacified the right coronary artery in multiple views. Thereafter, we opacified the left ventricle in 2 views, ATKINSON and KAZAKH projection. Thereafter, we opacified the left coronary artery in multiple projections. At the end of the procedure, the catheter was removed, the sheath was flushed. She received 3 doses of nitroglycerin 200 mcg through the arterial sheath. At the end of the procedure, the sheath was removed. Hemostasis was accomplished by hand compression. The patient tolerated the procedure well without complications. SUMMARY OF HEMODYNAMIC FINDINGS: Central aortic pressure 139/73, left ventricular pressure 134/22, post LV gram 135/22. Final central aortic pressure 129/82. SUMMARY OF THE ANGIOGRAPHIC FINDINGS: 1. Left main coronary artery: The vessel is anatomically normal, divides into LAD, ramus, and circumflex. 2. Left anterior descending coronary artery: The left anterior descending coronary artery is anatomically normal, reaches the apex of the left ventricle. No lesions are noted. 3. Ramus intermedius: The ramus intermedius is free of any obstruction. 4. Circumflex: The circumflex is a nondominant system, is anatomically normal. 5. Right coronary artery: The right coronary artery is a normal dominant vessel arising from the right coronary sinus of Valsalva in a normal fashion. Gives rise to sinus charlotte branch and conus branch. The right coronary artery is free of any obstruction. LEFT VENTRICULOGRAM: Left ventriculogram in 30 degree ATKINSON and 60 degree KAZAKH projection reveals normal left ventricular contractility, ejection fraction estimated at 60%. There is no wall motion abnormality. No mitral regurgitation noted. SUMMARY: This study shows: 1. Mildly elevated LVEDP suggesting some diastolic dysfunction. 2. Normal epicardial coronary arteries with normal left main, normal LAD, normal ramus intermedius, normal circumflex, and normal right coronary artery. 3. Normal left ventricular systolic function, ejection fraction 60%. 4. No mitral regurgitation or aortic stenosis. RECOMMENDATIONS: The patient has evidently a case of noncardiac chest pain. She needs to be treated accordingly. She needs to follow up with her primary doctor for management of noncardiac chest pain. Probably she has significant GERD. She may be discharged home probably tomorrow morning. cc: Mihai Bernal MD MTDD
[2019-03-14] MEDS ORDERED: PRILOSEC PO ONE (13:44)
--- NOTE | 2019-03-14 15:26 | PROGRESS NOTE ---
DATE: 03/14/2019 SUBJECTIVE: The patient is feeling okay. No major complaints. OBJECTIVE: Vital Signs: Blood pressure 96/75, heart rate 62, respiratory rate 18, temperature 98.3 degrees, 100% on room air. Cardiovascular: Regular rate and rhythm. Pulmonary: Bilateral breath sounds, clear to auscultation. GI: Soft, nontender, nondistended. Bowel sounds were positive. LABORATORY DATA: Her troponin has been negative over 13 hours. I do not think we need to screen them anymore. She has had a cardiac catheterization which showed some diastolic dysfunction. EF is 60%, but I do not think she had any major occlusive disease. It was felt that this is noncardiac pain. She had some fluctuations in her blood pressures with Dr. Bernal. I would like to observe her overnight. ASSESSMENT/PLAN: 1. Chest pain. She is stable. We will continue to monitor. We will initiate Prilosec, maybe at a slightly higher dose. Encourage GI follow-up. 2. Diabetes. We will continue to monitor her blood sugars, hold metformin, just because she has gotten IV dye in the last 24 hours and we will continue to monitor. Anticipate discharge tomorrow if stable. cc: Myke Bauer MD
--- NOTE | 2019-03-14 18:06 | CARDIOLOGY CONSULTATION ---
DATE: 03/14/2019 REQUESTING PHYSICIAN: Hospitalist Service. REASON FOR CONSULT: Chest pain. HISTORY: Ms. Eid is a 43-year-old female that I had seen at my office just few days ago and we had discussed about ways of finding out why she was having chest pain. Yesterday she said that she went to the cemetery to visit the grave of her daughter and when she came back home, she laid in bed and then all of a sudden she experienced a severe heaviness in the chest that really scared her to and she decided to come to the emergency room. She presented to the ER at about 7 p.m. last night. They did a chest x-ray that shows no evidence of acute pathology. Her blood work showed a white count of 11,000, hemoglobin 11.4, hematocrit 35%. Sodium 141, potassium 3.7, BUN and creatinine were normal. CPK was elevated. However, subsequent CPK is much better. Her troponins have been checked twice. They are negative at 7 p.m. last night and 2:20 a.m. this morning. Pro BNP was slightly elevated at 185 pg/mL, upper normal is 178. EKG shows no acute ischemic changes as of 6:27 p.m. She is feeling a little better this morning, although she is very anxious. PAST MEDICAL HISTORY: Please refer to my dictated note from my office 4 days ago. Basically, she is morbidly obese and she has several other issues with her health including hypertension, acid reflux. PAST SURGICAL HISTORY: Had melanoma. Please refer to my office note. HOME MEDICATIONS: At the time of this admission include furosemide, ibuprofen, lisinopril, metformin, and propranolol. ALLERGIES: Negative. REVIEW OF SYSTEMS: Noncontributory. PHYSICAL EXAMINATION: Vital signs: Blood pressure 106/50, temperature 98.1 degrees, pulse 64, respirations 14. General: She is awake, alert, oriented. She is morbidly obese. HEENT: Unremarkable. Chest: Clear to auscultation and percussion. Heart: Sounds regular and rhythmic. No gallop or murmur. Abdomen: Obese, nontender. Extremities: Show good pulses. No peripheral edema. Neurologic: Nonfocal. Moves 4 extremities. IMPRESSION AND PLAN: 1. Patient who presents with recurrent chest pain. 2.We have already performed noninvasive testing on her on March 06, 2019 : Abnormal Myocardial perfusion Stress test: Study showed an inducible ischemia in a focal area at the mid to apical anterior wall of the left ventricle. Ejection fraction was normal. Because of that abnormal stress test, I had already suggested to pursue left heart catheterization. We discussed the benefits, risks, and complications of the procedure and the patient was agreeable. Today, she is in agreement to go ahead and do it. We will set her up for today with suspicion that she may have coronary disease and then we will take it from there. Further advice will be forthcoming. cc: Mihai Bernal MD MTDD
[2019-03-15 06:02] LABS: BASO# 0.02 X1000 (0.0-0.2); BASO% 0.2 % (0.0-0.8); EOS# 0.11 X1000 (0.0-0.7); EOS% 1.3 % (0.0-10.0); HEMATOCRIT 33.1 % (37.0-47.0); HEMOGLOBIN 10.7 g/dL (12.0-16.0); IMM GRAN# 0.04 X1000 (0.0-0.04); IMM GRAN% 0.5 % (0.0-0.5); LYMPH# 1.72 X1000 (1.2-3.4); MCH 29.6 PG (27-31); MCHC 32.3 g/dL (33-37); MCV 91.4 FL (81-99); MONO# 0.49 X1000 (0.11-0.59); NEUT# 5.81 X1000 (1.4-6.5); PLT 274 X1000 (130-400); RBC 3.62 XMIL (4.2-5.4); RDW 13.4 % (11.5-14.5); WBC 8.19 X1000 (4.8-10.8)
[2019-03-15] MEDS: LOVENOX SUBQ SCH (06:13)
[2019-03-15] MEDS ORDERED: PRILOSEC PO SCH (07:00)
[2019-03-15 08:06] VITALS: BP 135/80
[2019-03-15] MEDS: INDERAL PO SCH (09:07)
[2019-03-15] MEDS: PRINIVIL PO SCH (09:07)
[2019-03-15] MEDS: ASPIRIN PO SCH (09:07)
--- NOTE | 2019-04-20 23:28 | DISCHARGE SUMMARY ---
ADMISSION DATE: 03/14/2019 DISCHARGE DATE: 03/15/2019 DISCHARGE DIAGNOSIS: Chest pains. PROCEDURES: 1. Cardiac catheterization with normal coronary anatomy. 2. Type 2 diabetes. HISTORY: The patient is 43. She came in with atypical chest pain. She has a GXT which was normal so they proceeded to a left heart catheterization. The left heart catheterization showed ejection fraction of 60%, normal epicardial coronary arteries and was felt to be noncardiac chest pain so she was discharged in stable condition. DISCHARGE MEDICATIONS: Ibuprofen 800 t.i.d., Lasix p.r.n., lisinopril 20, metformin 500 daily, propranolol 40 daily. DISCHARGE CONDITION: Stable. PCPS: Dr. Drew, Dr. Bernal. Observational discharges. cc: Myke Bauer MD
== END 2019-03-15 10:23 | disposition home or self-care (01) ==
LOC: SUPCPDRO → ED 18:21 → 4N 18:21 → SUATTDRO 03-14 01:01 → 2N 03-14 10:39
PROVIDERS: ATTEND Internal Medicine